=== PATIENT | female | born 1985 | race African-American/Black ===

== ENCOUNTER 2017-03-03 21:04 | Inpatient (IN) ==
[2017-03-03] MEDS ORDERED: ZOFRAN ONE (21:15)
[2017-03-03] MEDS ORDERED: ZOFRAN IV ONE (21:15)
[2017-03-03] MEDS ORDERED: NS 1,000 ML IV ONE ×3 (21:15→23:49)
[2017-03-03] MEDS ORDERED: NS 2,000 ML ONE (21:15)
[2017-03-03 21:20] LABS: MANUAL DIFF NEEDED? NO
[2017-03-03 21:21] LABS: BASO% 0.1 % (0.0-0.8); HEMATOCRIT 45.4 % (37.0-47.0); HEMOGLOBIN 15.9 g/dL (12.0-16.0); IMM GRAN# 0.01 X1000 (0.0-0.04); IMM GRAN% 0.1 % (0.0-0.5); LYMPH# 1.23 X1000 (1.2-3.4); LYMPH% 12.1 % (20.5-51.1); MCH 29.8 PG (27-31); MCV 85.2 FL (81-99); MONO# 0.83 X1000 (0.11-0.59); MONO% 8.2 % (1.7-9.3); MPV 9.5 FL (7.4-10.4); NEUT% 79.5 % (42.2-75.2); PLT 309 X1000 (130-400); RBC 5.33 XMIL (4.2-5.4)
[2017-03-03 21:39] LABS: ACETONE SERUM MODERATE (NEGATIVE)
[2017-03-03 21:54] LABS: AGAP 33; ALBUMIN 5.2 g/dL (3.5-5.0); ALKALINE PHOSPHATASE 96 U/L (32-104); BUN 25 mg/dL (8-22); CALCIUM 9.9 mg/dL (8.8-10.2); CHLORIDE 83 mmol/L (98-107); COSMO 275; GOT 15 U/L (10-30); GPT 16 U/L (10-36); LIPASE 12 U/L (13-60); SODIUM 122 mmol/L (136-145); TCO2 7 mmol/L (25-35); TOTAL PROTEIN 10.1 g/dL (6.3-8.3)
[2017-03-03 21:55] LABS: POTASSIUM 6.5 mmol/L (3.5-5.1)
[2017-03-03] MEDS ORDERED: HUMULIN R IV ONE (21:56)
[2017-03-03 21:58] LABS: BE -21.6 mmoll (-3.0-3.0); BLOOD TYPE ARTERIAL; DRAW SITE R RADIAL; METHB 1.1 % (0.0-1.5); O2(CT) 20.6 mL/dL (15.0-23.0); PCO2(98.6) 20 mmHg (35-45); PO2(98.6) 107 mmHg (60-100); SAMPLE BLOOD; SAO2 98.8 % (95.0-100.0); THB 15.2 g/dL (11.5-17.4)
[2017-03-03 22:07] LABS: ALLEN TEST YES; MODALITY ROOM AIR
[2017-03-03] MEDS ORDERED: MORPHINE IV PRN (22:07)
[2017-03-03] MEDS ORDERED: HUMULIN R (PARKWAY) ONE ×2 (22:08→22:31)
[2017-03-03 22:11] LABS: BILIRUBIN URINE NEGATIVE (NEGATIVE); BLOOD URINE 1+ (NEGATIVE); CLARITY CLEAR (CLEAR); COLOR STRAW; LEUKOCYTES URINE NEGATIVE (NEGATIVE); NITRITE URINE NEGATIVE (NEGATIVE); PROTEIN URINE 1+(30 mg/dL) mg/dL (NEGATIVE); UROBILINOGEN URINE NORMAL
[2017-03-03 22:22] LABS: URINE CULTURE PL NEEDED? YES; URINE EPITHELIAL CELLS <10 /HPF (<10); URINE RBC <10 /HPF (<10); URINE WBC <10 /HPF (<10)
[2017-03-03 22:23] LABS: URINE CAST GRANULAR PRESENT /LPF; URINE SOURCE CLEAN CATCH
[2017-03-03] MEDS ORDERED: NS 100 ML ONE (22:31)
[2017-03-04] MEDS ORDERED: POTASSIUM CHLORIDE 20 MEQ in NS 100 ML IV PRN (00:54)
[2017-03-04] MEDS ORDERED: TYLENOL PO PRN (00:54)
[2017-03-04] MEDS ORDERED: D50W SYRINGE IV PRN (00:54)
[2017-03-04] MEDS ORDERED: HUMULIN R 100 UNIT in NS 99 ML IV SCH (00:54)
[2017-03-04] MEDS ORDERED: POTASSIUM CHLORIDE 40 MEQ in NS 250 ML IV PRN (00:54)
[2017-03-04] MEDS ORDERED: HUMULIN R IV ONE (00:54)
[2017-03-04] MEDS: NS 1,000 ML IV SCH ×5 (01:05→21:12)
[2017-03-04 02:01] LABS: BLOOD TYPE ARTERIAL; DRAW SITE R RADIAL; METHB 1.2 % (0.0-1.5); O2(CT) 18.5 mL/dL (15.0-23.0); PCO2(98.6) 24 mmHg (35-45); PO2(98.6) 105 mmHg (60-100); SAMPLE BLOOD; SAO2 99.2 % (95.0-100.0); THB 13.6 g/dL (11.5-17.4); pH(98.6) 7.27 (7.35-7.45)
[2017-03-04 02:04] LABS: ALLEN TEST YES; MODALITY ROOM AIR
--- NOTE | 2017-03-04 02:06 | EKG Report ---
Test Performed on : 03/04/2017 01:47:15 AM Test Reason : dka protocol Blood Pressure : / mmHG Vent. Rate : 091 BPM Atrial Rate : 091 BPM P-R Int : 134 ms QRS Dur : 080 ms QT Int : 392 ms P-R-T Axes : 077 007 037 degrees QTc Int : 482 ms Normal sinus rhythm. Possible Left atrial enlargement Prolonged QT Abnormal ECG When compared with ECG of 09-AUG-2012 19:19, Nonspecific T wave abnormality, worse in Inferior leads T wave inversion no longer evident in Anterior leads Unconfirmed Result
[2017-03-04] MEDS: ZOFRAN IV PRN ×3 (02:16→16:54)
[2017-03-04 02:28] LABS: UR AMPHETAMINES QUAL NONE DETECTED (NONE DETECT); UR BARBITUATES QUAL NONE DETECTED (NONE DETECT); UR BENZODIAZEPIN QUAL NONE DETECTED (NONE DETECT); UR CANNABINOIDS QUAL PRESUMPTIVE POSITIVE (NONE DETECT); UR COCAINE QUAL NONE DETECTED (NONE DETECT); UR MDMA QUAL NONE DETECTED (NONE DETECT); UR METHADONE QUAL NONE DETECTED (NONE DETECT); UR METHAMPHETAMINE QUAL NONE DETECTED (NONE DETECT); UR OPIATES QUAL NONE DETECTED (NONE DETECT); UR OXYCODONE QUAL NONE DETECTED (NONE DETECT); UR PCP QUAL NONE DETECTED (NONE DETECT); UR TCA QUAL NONE DETECTED (NONE DETECT)
[2017-03-04 03:09] LABS: MAGNESIUM 2.1 mg/dL (1.5-2.7)
[2017-03-04 03:16] LABS: HEMOGLOBIN A1C 8.7 % (4.8-6.0)
[2017-03-04 03:34] LABS: AGAP 22; BUN 19 mg/dL (8-22); CALCIUM 7.8 mg/dL (8.8-10.2); CHLORIDE 100 mmol/L (98-107); COSMO 269; POTASSIUM 4.1 mmol/L (3.5-5.1); SODIUM 131 mmol/L (136-145); TCO2 9 mmol/L (25-35)
[2017-03-04 04:24] LABS: HDL 58 mg/dL (45-65); TRIGLYCERIDES 308 mg/dL (35-135); VLDL 62 mg/dL
[2017-03-04 04:27] LABS: CK PROFILE 94 U/L (24-173)
[2017-03-04 04:29] LABS: LDL 85 mg/dL
[2017-03-04 06:16] LABS: BE -12.4 mmoll (-3.0-3.0); BLOOD TYPE ARTERIAL; DRAW SITE R BRACHIAL; O2(CT) 18.2 mL/dL (15.0-23.0); PCO2(98.6) 26 mmHg (35-45); PO2(98.6) 113 mmHg (60-100); SAMPLE BLOOD; SAO2 99.5 % (95.0-100.0); THB 13.3 g/dL (11.5-17.4); pH(98.6) 7.29 (7.35-7.45)
[2017-03-04 06:22] LABS: ALLEN TEST YES; MODALITY ROOM AIR
[2017-03-04 06:27] LABS: AGAP 20; BUN 17 mg/dL (8-22); CALCIUM 7.8 mg/dL (8.8-10.2); CHLORIDE 99 mmol/L (98-107); COSMO 265; POTASSIUM 3.9 mmol/L (3.5-5.1); SODIUM 130 mmol/L (136-145); TCO2 11 mmol/L (25-35)
[2017-03-04 10:23] LABS: BE -8.8 mmoll (-3.0-3.0); BLOOD TYPE ARTERIAL; METHB 0.8 % (0.0-1.5); O2(CT) 16.5 mL/dL (15.0-23.0); PCO2(98.6) 28 mmHg (35-45); PO2(98.6) 108 mmHg (60-100); SAMPLE BLOOD; SAO2 100.2 % (95.0-100.0); pH(98.6) 7.35 (7.35-7.45)
[2017-03-04 10:26] LABS: ALLEN TEST YES; DRAW SITE R BRACHIAL; MODALITY ROOM AIR
[2017-03-04 11:38] LABS: AGAP 18; BUN 16 mg/dL (8-22); CHLORIDE 102 mmol/L (98-107); COSMO 267; POTASSIUM 3.8 mmol/L (3.5-5.1); SODIUM 132 mmol/L (136-145); TCO2 13 mmol/L (25-35)
[2017-03-04] MEDS: POTASSIUM CHLORIDE 20 MEQ/SWI 20 MEQ/100 ML IVPB IV PRN ×2 (12:15→15:24)
[2017-03-04 14:49] LABS: BE -7.8 mmoll (-3.0-3.0); BLOOD TYPE ARTERIAL; DRAW SITE R BRACHIAL; METHB 1.2 % (0.0-1.5); O2(CT) 16.2 mL/dL (15.0-23.0); PCO2(98.6) 28 mmHg (35-45); PO2(98.6) 107 mmHg (60-100); SAMPLE BLOOD; SAO2 99.4 % (95.0-100.0); THB 11.9 g/dL (11.5-17.4); pH(98.6) 7.37 (7.35-7.45)
[2017-03-04 14:52] LABS: ALLEN TEST NO; MODALITY ROOM AIR
[2017-03-04 15:16] LABS: AGAP 17; BUN 13 mg/dL (8-22); CALCIUM 7.7 mg/dL (8.8-10.2); CHLORIDE 101 mmol/L (98-107); COSMO 268; SODIUM 133 mmol/L (136-145); TCO2 15 mmol/L (25-35)
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
[2017-03-04] MEDS ORDERED: SODIUM PHOSPHATE 30 MMOL in NS 250 ML IV ONE (15:42)
[2017-03-04] MEDS: MOTRIN PO PRN (16:54)
[2017-03-04] MEDS: CORTISPORIN OTIC SOLN OTIC SCH ×2 (17:20→22:57)
[2017-03-04 18:46] LABS: AGAP 18; BUN 12 mg/dL (8-22); CALCIUM 7.7 mg/dL (8.8-10.2); CHLORIDE 99 mmol/L (98-107); COSMO 270; POTASSIUM 3.7 mmol/L (3.5-5.1); SODIUM 132 mmol/L (136-145); TCO2 15 mmol/L (25-35)
[2017-03-04 18:48] LABS: BE -7.9 mmoll (-3.0-3.0); BLOOD TYPE ARTERIAL; DRAW SITE R BRACHIAL; METHB 1.1 % (0.0-1.5); O2(CT) 15.4 mL/dL (15.0-23.0); PCO2(98.6) 29 mmHg (35-45); PO2(98.6) 95 mmHg (60-100); SAMPLE BLOOD; THB 11.3 g/dL (11.5-17.4); pH(98.6) 7.36 (7.35-7.45)
[2017-03-04 18:58] LABS: MODALITY ROOM AIR
[2017-03-04 18:59] LABS: ALLEN TEST NO
[2017-03-04] MEDS ORDERED: REMERON PO ONE (22:13)
[2017-03-04 22:49] LABS: AGAP 15; BUN 11 mg/dL (8-22); CALCIUM 7.7 mg/dL (8.8-10.2); CHLORIDE 100 mmol/L (98-107); COSMO 270; POTASSIUM 3.3 mmol/L (3.5-5.1); SODIUM 133 mmol/L (136-145); TCO2 18 mmol/L (25-35)
[2017-03-04] MEDS: POTASSIUM CHLORIDE 40 MEQ/SWI 40 MEQ/100 ML IVPB IV PRN (23:21)
[2017-03-05] MEDS: ZOFRAN IV PRN (03:23)
[2017-03-05 05:09] LABS: AGAP 14; BUN 10 mg/dL (8-22); CALCIUM 7.8 mg/dL (8.8-10.2); CHLORIDE 101 mmol/L (98-107); COSMO 268; POTASSIUM 3.2 mmol/L (3.5-5.1); SODIUM 133 mmol/L (136-145); TCO2 18 mmol/L (25-35)
[2017-03-05] MEDS: CORTISPORIN OTIC SOLN OTIC SCH ×4 (05:26→22:53)
[2017-03-05] MEDS: POTASSIUM CHLORIDE 40 MEQ/SWI 40 MEQ/100 ML IVPB IV PRN (05:27)
[2017-03-05] MEDS: NS 1,000 ML IV SCH ×2 (06:11→17:20)
[2017-03-05] MEDS ORDERED: MORPHINE IV PRN (07:05)
[2017-03-05 08:21] LABS: AGAP 15; BUN 9 mg/dL (8-22); CALCIUM 7.7 mg/dL (8.8-10.2); CHLORIDE 101 mmol/L (98-107); COSMO 269; MAGNESIUM 1.9 mg/dL (1.5-2.7); POTASSIUM 3.9 mmol/L (3.5-5.1); SODIUM 133 mmol/L (136-145); TCO2 17 mmol/L (25-35)
[2017-03-05] MEDS ORDERED: TYLENOL PO PRN (08:51)
[2017-03-05] MEDS ORDERED: ZOFRAN IV PRN (08:51)
[2017-03-05] MEDS ORDERED: ROCEPHIN 1 GM/NS 1 GM/50 ML IVPB IV SCH (09:00)
--- NOTE | 2017-03-05 09:21 | PROGRESS NOTE ---
DATE: 03/05/2017 SUBJECTIVE: The patient notes that she has lots of pain and tenderness with swelling in her pubic area. She notes that it hurts to touch. She states that she has been out of her insulin at home, and this is the reason she has not been taking it. She does not have money to follow up with her primary care physician, Dr. Molina. She notes that her nausea is better. PHYSICAL EXAMINATION: Vital Signs: Temperature 98 degrees, pulse 92, respiratory rate 15, blood pressure 150/84, saturation 100% on room air. General: The patient is awake, alert, oriented. She is currently in no respiratory distress. She states that she is feeling a little bit better. She is having some nausea, however. Neck: Supple. Cardiovascular: Regular rate. Chest: Relatively clear, nonlabored. No wheezing. Abdomen: Soft, diffusely but mildly tender. No hepatosplenomegaly. Extremities: Moves all extremities. Genitourinary: Exam demonstrates moderate swelling on the right side of her pubis. Tender to touch. ASSESSMENT: 1. Diabetic ketoacidosis. Blood sugars have continued to improve. Her last carbon dioxide is 18. We will stop her insulin drip at this point. 2. Hypophosphatemia. We will continue to replace. 3. Hypocalcemia. 4. Diabetes with poor home control. 5. Abscess. We will place on Rocephin. PLAN: Hopefully out of the ICU in the next 1 to 2 days if she tolerates staying off an insulin drip and tolerates a diabetic diet. Further orders as needed. cc: Ronald Ospina MD
[2017-03-05] MEDS: LEVEMIR INSULIN *HA SUBQ SCH ×2 (10:13→22:02)
[2017-03-05] MEDS: MOTRIN PO PRN ×2 (11:51→19:15)
[2017-03-05] MEDS: HUMALOG DOSE (PARKWAY) SUBQ SCH ×3 (11:52→21:10)
[2017-03-05] MEDS ORDERED: REMERON PO SCH (21:00)
[2017-03-06] MEDS: NS 1,000 ML IV SCH (03:40)
[2017-03-06] MEDS: HUMALOG DOSE (PARKWAY) SUBQ SCH (06:20)
[2017-03-06] MEDS: CORTISPORIN OTIC SOLN OTIC SCH (06:28)
[2017-03-06] MEDS ORDERED: CALTRATE 600 PO ONE (09:16)
[2017-03-06] MEDS ORDERED: NEUTRA-PHOS PO ONE (09:20)
[2017-03-06 10:16] VITALS: BP 108/70
--- NOTE | 2017-03-06 11:23 | PROGRESS NOTE ---
DATE: 03/06/2017 SUBJECTIVE: The patient states that the abscess in her pubic area ruptured through the night. She has no more pain. She does have drainage. She denies nausea. She states that she is feeling much better. OBJECTIVE: Vital Signs: Blood pressure is 109/67 with a heart rate of 77, respirations are 16, temperature is 98.4 degrees oral with room air saturations 100%. Cardiovascular: Regular rate and rhythm. S1 and S2 appreciated. Pulmonary: Breath sounds are clear with no increased work of breathing noted. Gastrointestinal: Abdomen is soft, nontender, nondistended with bowel sounds in all 4 quadrants. Extremities: No clubbing, cyanosis, or edema. Pulses are palpable x4. Calves are nontender. : Right side of the pubic area has decreased swelling. It is no longer tender to touch. At present, there is no drainage. LABS: Blood sugars are running in the 110-200 range. ASSESSMENT: 1. Diabetic ketoacidosis. Blood sugars have improved. Her last CO2 was 17. We will continue to follow. 2. Hypophosphatemia. We will continue to replace. 3. Hypocalcemia. 4. Diabetes with poor home control due to noncompliance as the patient has not been taking her insulin nor following a diet. 5. Abscess. This has ruptured. We will attempt to obtain a wound culture. We will continue antibiotics. PLAN: Hopefully she will move to the floor today, increase her activity and home in 1-2 days. Dictated by CATHERINE Velasco for Ronald Ospina MD cc: CATHERINE Velasco MD
--- NOTE | 2017-03-06 19:29 | DISCHARGE SUMMARY ---
ADMISSION DATE: 03/03/2017 DISCHARGE DATE: 03/06/2017 DIAGNOSES: 1. Diabetic ketoacidosis resolved. 2. Diabetes mellitus with poor home control, noncompliance. 3. Abscess resolved. DIAGNOSTICS: Microbiology. Blood cultures x2 no growth after 48 hours. Urine culture revealed no growth. HOSPITAL COURSE: Ms. Zelaya was admitted for DKA. She was admitted ICU, treated per DKA protocol. We were able to discontinue her drip 24 hours ago she has done well on sliding scale. Will transition her back to her home medications. She has been unable to afford her home medications for quite some time. We did discuss the importance of her continuing her regimen to avoid future hospitalizations and halfway organ damage. She did have a area to her right groin an abscessed area that she states started as a small pimple about a week ago. It did rupture through the night. At present there is no drainage, she has no more pain. PHYSICAL EXAMINATION: Cardiovascular: Regular rate and rhythm, S1, S2 appreciated. Pulmonary: Breath sounds are clear with no increased work of breathing noted. Gastrointestinal: Abdomen is soft, nontender, nondistended. Bowel sounds all 4 quadrants. Extremities: No clubbing, cyanosis, or edema. Calves nontender. Pulses are palpable x4. DISCHARGE MEDICATIONS: Bactrim DS 1 p.o. b.i.d. for 14 days, Cortisporin otic solution q.6 hours to her left ear for another 3 days, Levemir 10 units b.i.d., NovoLog 10 units AC as pre hospitalization . FOLLOWUP: She is to follow up with her primary care physician Jonathan Molina within a week. DISCHARGE VITAL SIGNS: Blood pressure 109/67, heart rate 77, respirations 18, temperature 98.9 degrees, room air saturations are 99-100%. The patient was also given a prescription for lancets, strips and other supplies for her Contour meter. She is being discharged home in stable condition with family members. TIME SPENT: This is a greater than 30 minutes discharge. Dictated by CATHERINE Velasco for Ronald Ospina MD cc: CATHERINE Velasco MD MTDD
--- NOTE | 2017-03-12 15:45 | PROVIDER DOCUMENTATION ---
This chart was entered by Malathi Cui Scribe, acting as scribe for Felice Davila PA. HPI-Abdominal Pain/GI Problem - General Chief Complaint: Abdominal Pain Stated Complaint: abd pain Time Seen by Provider: 03/03/17 21:15 Source: patient Allergies/Adverse Reactions: Patient Allergies Allergy/AdvReac Type Severity Reaction Status Date / Time acetaminophen [From Percocet] AdvReac ITCHING Verified 03/03/17 21:09 cyclobenzaprine HCl * AdvReac HIVES Verified 03/03/17 21:09 [From Flexeril] oxycodone HCl * AdvReac ITCHING Verified 03/03/17 21:09 [From Percocet] Home Medications: Home Medication List Medication Instructions Recorded Confirmed Last Taken Type Insulin Aspart [Novolog Flexpen] 1 unit SUBQ DAILY #3 insuln.pen 03/06/17 Unknown Rx Insulin Detemir [Levemir] 1 unit .SEE ORDER DAILY #3 vial 03/06/17 Unknown Rx Neomycin/Polymyxn/Hc Otic Soln 1 ml OTIC Q6H #1 bottle 03/06/17 Unknown Rx [Cortisporin Otic Soln] Sulfamethoxazole/Trimethoprim 1 each PO BID #20 tablet 03/06/17 Unknown Rx [Bactrim Ds Tablet] - History of Present Illness-ABD Nature of Presenting Problems: 31 Y/O F presents to ED with ABD pain. Pt c/o of ADB pain for the past 2 days. States she went to [place] and [facility] and had normal exams and labs. Pt was brought in by EMS extremely fatigue, Vomiting. Abdominal Pain Onset Location: reports: generalized abdomen Pain Radiation: reports: no radiation Quality of Pain: reports: aching Severity in ED: reports: severe Onset/Duration: reports: 2 days ago Timing: reports: still present Associated Symptoms: reports: fatigue, vomiting. denies: cough, diaphoresis, diarrhea Review of Systems - Adult - REVIEW OF SYSTEMS - ADULT Constitutional: reports: fatique. denies: chills, fever Eyes: reports: no symptoms reported Ears, Nose, Mouth & Throat: reports: no symptoms reported Cardiovascular: reports: no symptoms reported Respiratory: reports: no symptoms reported Gastrointestinal: reports: abdominal pain, vomiting. denies: nausea Genitourinary: reports: no symptoms reported Musculoskeletal: reports: no symptoms reported Integumentary: reports: no symptoms reported Neurological: reports: no symptoms reported Psychiatric: reports: no symptoms reported Endocrine: reports: no symptoms reported Hematologic/Lymphatic: reports: no symptoms reported Allergic/Immunologic: reports: no symptoms reported All Other Systems: Reviewed and Negative Past History - Adult - PAST MEDICAL HISTORY-ADULT Review of Records: reports: Old Records Reviewed, Nursing Assessment Review, Medications Reviewed, Social history reviewed & non-contributory. Physical Exam-General - CONSTITUTIONAL General Appearance: alert, mild distress - EYES Eyes: PERRL/EOMI, pink conjunctivae - HEAD, EARS, NOSE, MOUTH & THROAT HENMT: normocephalic/atraumatic, moist mucous membranes, normal ENT inspection, TMs normal, pharynx normal - NECK Neck: non-tender, full range of motion, supple, normal inspection - RESPIRATORY Respiratory: chest non-tender, lungs clear, normal breath sounds - CARDIOVASCULAR Cardiovascular: normal peripheral pulses, regular rate, rhythm - GASTROINTESTINAL (ABDOMEN) Abdominal Exam: tenderness - LYMPHATIC Lymphatic: no adenopathy - MUSCULOSKELETAL Back Exam: normal inspection, no CVA tenderness, no vertebral tenderness Extremity: normal range of motion, non-tender Progress - PLAN OF CARE/RESULTS Progress/Plan/Lab Results: Vital Signs - 8 hr 03/03/17 21:05 Temperature 98.2 F Pulse Rate 131 H Respiratory Rate 18 Blood Pressure 130/90 O2 Sat by Pulse Oximetry 99 Bedside Urine ED: Urine Bedside Start: 03/03/17 21:15 Freq: ORDERED Status: Active Activity Type Activity Date Activity User E-Sign Co-Sign Detail Recorded Client Recorded Date Recorded By Document 03/03/17 21:46 [id number] 03/03/17 21:46 [id number] 03/03/17 21:46 Point of Care [Bedside Point of Care] -Lot # [id number] - Results Negative -Control Line Visible? Yes Laboratory Results - last 24 hr 03/03/17 03/03/17 21:12 21:12 WBC 10.18 RBC 5.33 Hgb 15.9 Hct 45.4 MCV 85.2 MCH 29.8 MCHC 35.0 RDW Std Deviation 11.7 Plt Count 309 MPV 9.5 Immature Gran % (Auto) 0.1 Neut % (Auto) 79.5 H Lymph % (Auto) 12.1 L Cooke % (Auto) 8.2 Eos % (Auto) 0.0 Baso % (Auto) 0.1 Immature Gran # (Auto) 0.01 Neut # (Auto) 8.10 H Lymph # (Auto) 1.23 Cooke # (Auto) 0.83 H Eos # (Auto) 0.00 Baso # (Auto) 0.01 Sodium 122 L Potassium 6.5 H* D Chloride 83 L Carbon Dioxide 7 L Anion Gap 33 BUN 25 H Creatinine 1.2 H Estimated GFR/1.73 m2 52 BUN/Creatinine Ratio 21 Glucose 543 H* D Calculated Osmolality 275 Calcium 9.9 Total Bilirubin 0.80 AST 15 ALT 16 Alkaline Phosphatase 96 Total Protein 10.1 H Albumin 5.2 H Globulin 5.0 Albumin/Globulin Ratio 1.0 Lipase 12 L Acetone Level MODERATE A Orders Category Date Time Status ED: Urine Bedside ORDERED Care 03/03/17 21:15 Active Saline Loc NOW Care 03/03/17 21:15 Active ABG [RESP] Routine Lab 03/03/17 21:15 Ordered ACETONE SERUM [CHEM] Stat Lab 03/03/17 21:12 Completed CBC WITH DIFF [HEME] Stat Lab 03/03/17 21:12 Completed COMPREHENSIVE METABOLIC PANEL [CHEM] Stat Lab 03/03/17 21:12 Completed LIPASE [CHEM] Stat Lab 03/03/17 21:[address] W/POSS RFLX CULT [URINALYSIS] Stat Lab 03/03/17 21:49 Received 0.9% Sodium Chloride Inj [Ns] 1,000 ml Med 03/03/17 21:15 Discontinued .ROUTE As Directed 0.9% Sodium Chloride Inj [Ns] 1,000 ml Med 03/03/17 21:15 Active IV 999 mls/hr Insulin Human Regular [Humulin R] Med 03/03/17 21:56 Discontinued 10 unit IV NOW ONE Ondansetron [Zofran] Med 03/03/17 21:15 Discontinued 4 mg .ROUTE .STK-MED ONE Ondansetron [Zofran] Med 03/03/17 21:15 Discontinued 4 mg IV NOW ONE Result Diagrams: 03/03/17 21:12 03/05/17 07:57 Departure - Departure Time of Disposition Decision: 22:02 DIAGNOSIS: DKA (diabetic ketoacidosis) Qualifiers: Diabetes mellitus type: type 1 Diabetes mellitus complication detail: without coma Qualified Code(s): E10.10 - Type 1 diabetes mellitus with ketoacidosis without coma Disposition: ADMITTED INPATIENT 09 Certified Medical Emergency: Emergent Condition: Stable - Critical Care Note This patient required my direct & personal management of CC.: Yes Total Time (mins): 20 Critical Care Statement: This patient required my direct personal management to treat or rule out processes, the absence of which, could potentiallly result in sudden, clinically significant life or limb threatening deterioration. Attestation - Physician/ GORGE Attestation Patient care was provided by Advanced Practice Provider:: Yes Advanced Practice Provider:: Felice Davila Advanced Practice Provider documentation review:: The Mid-level provider documentation, treatment plan and medical decision making was reviewed by the physician who agrees with all treatment and medical decision making by the MLP. This chart was documented by the indicated scribe, (Malathi Cui Scribe) and accurately reflects the services I performed and decisions made by me, Felice Davila PA, as attested by the provider's signature.
== END 2017-03-06 11:00 | disposition home or self-care (01) ==
LOC: P.ED 21:04 → P.ICU 23:32 → SUATTDRO 23:32
PROVIDERS: ATTEND Family Medicine